=== PATIENT | male | born 2000 | race Caucasian/White ===

== ENCOUNTER 2023-10-27 16:39 | Emergency (ER) | payer SELFPAY ==
[2023-10-27] MEDS ORDERED: Lorazepam 2 MG/ML VIAL ONE (16:46)
[2023-10-27 16:59] LABS: #Basophils 0.08 10x3/uL (0.0-0.2); #Eosinphils 0.05 10x3/uL (0.0-0.5); #Neutrophils 17.94 10x3/uL (1.5-8.4); %Basophils 0.3 % (0.0-2.0); %Eosinophils 0.2 % (0.0-6.0); %Lymphocytes 15.9 % (18.0-47.0); %Monocytes 5.2 % (0.0-10.0); %Neutrophils 77.8 % (40.0-75.0); Hematocrit 57.1 % (38.8-50.0); Hemoglobin 20.9 g/dL (13.5-17.5); Mean Corpuscular HGB CONC 36.6 g/dL (32.0-36.0); Mean Corpuscular Hemoglobin 33.1 pg (27.0-33.0); Mean Corpuscular Volume 90.3 fL (81.2-95.1); Mean Platelet Volume 10.5 fL (7.4-10.4); Platelet Count 508 10x3/uL (150-450); RBC Distribution Width 12.5 % (11.5-14.5); Red Blood Cell (RBC) Count 6.32 10x6/uL (4.32-5.72); White Blood Cell (WBC) Count 23.1 10x3/uL (3.5-10.5)
[2023-10-27] MEDS ORDERED: fentaNYL 50 mcg/mL 1 mL Vial ONE (16:59)
[2023-10-27 17:15] LABS: ALT (SGPT) 24 U/L (8-55); AST (SGOT) 23 U/L (5-34); Albumin Greater than 6.2 g/dL (3.5-5.0); Alkaline Phosphatase 167 U/L (40-110); Anion Gap 31 mmol/L (10-20); BUN (Urea Nitrogen) 21 mg/dL (8.9-20.6); Bilirubin, Total 1.1 mg/dL (0.2-1.2); CK (CPK) 230 U/L (30-200); Calc. Creatinine Clearance 0 mL/min (70-130); Carbon Dioxide 24 mmol/L (22-29); Chloride 95 mmol/L (98-107); Estimated GFR 31; Glucose 117 mg/dL (70-105); Lipase 55 U/L (8-78); Sodium 146 mmol/L (136-145)
[2023-10-27 17:23] LABS: Calcium 13.8 mg/dL (7.8-10.44); Critical Call Chemistry NUR.LD3 AT 1718
[2023-10-27 17:42] LABS: Protein, Total 11.8 g/dL (6.0-8.3)
[2023-10-27 18:47] LABS: Anion Gap 20 mmol/L (10-20); BUN (Urea Nitrogen) 19 mg/dL (8.9-20.6); Calc. Creatinine Clearance 0 mL/min (70-130); Calcium 10.1 mg/dL (7.8-10.44); Carbon Dioxide 21 mmol/L (22-29); Chloride 104 mmol/L (98-107); Estimated GFR 51; Glucose 94 mg/dL (70-105); Potassium 3.7 mmol/L (3.5-5.1); Sodium 141 mmol/L (136-145)
== END 2023-10-27 19:05 | disposition home or self-care (01) ==
LOC: CSHERS 16:39
DX: T67.5XXA Heat exhaustion, unspecified, initial encounter (principal); E86.0 Dehydration; N17.9 Acute kidney failure, unspecified
CPT/HCPCS: 36415; 80053; 82550; 83690; 85025; 93005; 96361; 96374; 96375; J2060; J3010